=== PATIENT | male | born 1970 | race Caucasian/White ===

== ENCOUNTER → 2018-04-14 | Outpatient (CLI) | payer BC ==
[~2018-04-14] MED LIST: NORCO 325 MG-51 TAB PO; ZYRTEC 10MG10 MG PO
== END ==
LOC: ZCOL.LAB 15:58
DX: J34.89 Other specified disorders of nose and nasal sinuses (principal)

== ENCOUNTER 2020-05-04 23:43 | Emergency (ER) | payer BC ==
[~2020-05-04] VITALS: Ht 193 cm; Wt 97.7 kg
[2020-05-04 23:48] VITALS: TEMP 98.1
[2020-05-05 01:39] LABS: BASO # 0.1 (0.0-0.2); BASO % 0.5 % (0.0-2.0); EOS # 0.2 (0.0-0.7); EOS % 1.9 % (0-4.0); GRAN # 6.6 (1.4-6.5); GRAN % 68.5 % (42.2-75.2); HEMATOCRIT 47.3 % (42.0-52.0); HEMOGLOBIN 16.7 g/dl (13.5-18.0); LYMPH # 2.1 (1.2-3.4); MEAN CELL VOLUME 88 fl (80.0-100.0); MEAN CORPUSCULAR HEMOGLOBIN 31 pg (27.0-31.0); MEAN CORPUSCULAR HGB CONC 35 g/dl (33.0-37.0); MONO # 0.7 (0.1-0.6); MONO % 6.8 % (1.7-9.3); PLATELET COUNT 222 K/mm3 (130-400); REDCELL DISTRIBUTION WIDTH-CV 12.4 % (11.5-14.5)
[2020-05-05 01:51] LABS: ALANINE AMINOTRANSFERASE 23 U/L (4-49); ALBUMIN 4.7 gm/dL (3.5-5.0); ALKALINE PHOSPHATASE 55 U/L (50-136); ANION GAP 11 mmol/L (7-16); AST,SGOT 37 U/L (15-37); BILIRUBIN,TOTAL 1.3 mg/dL (0.0-1.0); BLOOD UREA NITROGEN 18 mg/dL (9-20); C-REACTIVE PROTEIN < 0.5 mg/dL (0.0-0.9); CALCIUM 9.7 mg/dL (8.4-10.2); CARBON DIOXIDE 26 mmol/L (22-30); CHLORIDE 104 mmol/L (98-107); CREATINE KINASE 708 U/L (55-170); CREATININE, serum 1.03 (0.66-1.25); GLUCOSE 126 mg/dL (74-106); POTASSIUM 3.5 mmol/L (3.4-5.0); SODIUM 141 mmol/L (137-145); TOTAL PROTEIN 7.2 gm/dL (6.4-8.2)
[2020-05-05] MEDS ORDERED: FLEXERIL 1010 MG/TAB PO (03:36)
[2020-05-05] MEDS ORDERED: ZTLIDO1 EACH TP (03:36)
[2020-05-05 04:03] VITALS: BP 127/84; PULSE 63
== END 2020-05-05 04:05 | disposition home or self-care (01) ==
LOC: COL.ER 23:43
PROVIDERS: Emergency Medicine
DX: S22.32XA Fracture of one rib, left side, initial encounter for closed fracture (principal); Z88.6 Allergy status to analgesic agent; W18.09XA Striking against other object with subsequent fall, initial encounter; Y92.814 Boat as the place of occurrence of the external cause
CPT/HCPCS: J1885; J2360; J7030; Q9967